=== PATIENT | male | born 1990 | race Two or more races ===

== ENCOUNTER 2022-08-15 12:25 | Emergency (ER) | payer MEDICAID ==
[~2022-08-15] VITALS: Ht 180.3 cm; Wt 104.5 kg
[2022-08-15 12:35] VITALS: BP 132/88
== END 2022-08-15 13:17 | disposition left against medical advice (07) ==
LOC: ER 12:25
DX: M54.50 Low back pain, unspecified (principal); Z53.21 Procedure and treatment not carried out due to patient leaving prior to being seen by health care provider